=== PATIENT | male | born 1960 | race Caucasian/White ===

== ENCOUNTER 2019-04-04 08:08 | Emergency (ER) | payer MEDICAID ==
[~2019-04-04] VITALS: Ht 185.4 cm; Wt 90.8 kg
[2019-04-04 08:15] VITALS: BP 148/87; Ht 185.4 cm; Wt 90.8 kg
== END 2019-04-04 08:57 | disposition left against medical advice (07) ==
LOC: ED 08:08
DX: Z53.21 Procedure and treatment not carried out due to patient leaving prior to being seen by health care provider (principal)